=== PATIENT | female | born 1955 | race African-American/Black ===

== ENCOUNTER 2018-11-27 08:23 | Day surgery (SDC) | payer MEDICAID | END 2018-11-27 17:15 | disposition home or self-care (01) | LOC: COL.CAR 08:23 | DX: I25.10 Atherosclerotic heart disease of native coronary artery without angina pectoris (principal); I27.20 Pulmonary hypertension, unspecified; I73.9 Peripheral vascular disease, unspecified; J44.9 Chronic obstructive pulmonary disease, unspecified; I12.9 Hypertensive chronic kidney disease with stage 1 through stage 4 chronic kidney disease, or unspecified chronic kidney disease; E11.22 Type 2 diabetes mellitus with diabetic chronic kidney disease; N18.9 Chronic kidney disease, unspecified; M19.90 Unspecified osteoarthritis, unspecified site; E78.00 Pure hypercholesterolemia, unspecified; F17.290 Nicotine dependence, other tobacco product, uncomplicated; G43.909 Migraine, unspecified, not intractable, without status migrainosus; E78.2 Mixed hyperlipidemia; Z88.6 Allergy status to analgesic agent; Z91.018 Allergy to other foods; Z79.82 Long term (current) use of aspirin; Z80.9 Family history of malignant neoplasm, unspecified; Z83.3 Family history of diabetes mellitus; Z82.3 Family history of stroke ==

== ENCOUNTER 2020-06-05 07:37 | Day surgery (SDC) | payer MEDICAID ==
[~2020-06-05] VITALS: Ht 160 cm; Wt 78.2 kg
[2020-06-05] VITALS (688 sets, daily range): BP systolic 94–139; BP diastolic 60–82; PULSE 75–97; TEMP 97.2–98.2; O2SAT 79–100
[~2020-06-05 07:37] MED LIST: ALKA-SELTZER HE1 TEF PO; ASPIRIN 81M81 MG/TA2 PO; GLUCOPHAGE1000 MG PO; LIPITOR 40MG TA40 MG PO; NEURONTIN100 MG/CAP PO; PRINIVIL20 MG PO; SYNTHROID 0.0.025 MG PO; ZESTRIL 10MG10 MG PO; ZYRTEC 10MG10 MG PO
[2020-06-05] MEDS ORDERED: SYNTHROID0.05 MG/TA PO (08:02)
[2020-06-05] MEDS ORDERED: FERROUS SU325 MG/TAB PO (08:03)
[2020-06-05] MEDS ORDERED: VENTOLIN0.09 MG IH (08:04)
[2020-06-05] MEDS ORDERED: JANUMET 1000 MG1 TA1 PO (08:05)
[2020-06-05] MEDS ORDERED: SINGULAIR 110 MG/TAB PO (08:05)
[2020-06-05] MEDS ORDERED: ANORO IH (08:07)
[2020-06-05] MEDS ORDERED: KLONOPIN 0.5MG0.5 MG PO (08:07)
[2020-06-05] MEDS ORDERED: VITAMIN C500 MG PO (08:08)
[2020-06-05] MEDS ORDERED: PROTONIX20 MG PO (08:08)
[2020-06-05 08:13] LABS: HEMOGLOBIN 11.4 g/dl (12.5-16.0); MEAN CELL VOLUME 84 fl (80.0-100.0); MEAN CORPUSCULAR HEMOGLOBIN 27 pg (27.0-31.0); MEAN CORPUSCULAR HGB CONC 32 g/dl (33.0-37.0); MEAN PLATELET VOLUME 8.4 fl (7.4-10.4); PLATELET COUNT 362 K/mm3 (130-400); RED BLOOD COUNT 4.24 M/mm3 (4.10-5.30); REDCELL DISTRIBUTION WIDTH-CV 22.5 % (11.5-14.5)
[2020-06-05 08:17] LABS: HEMATOCRIT 35.6 % (37.0-47.0)
[2020-06-05 08:20] LABS: INR 1.1 (0.8-3.0); PROTHROMBIN TIME 12.5 SECONDS (9.7-12.8)
[2020-06-05 09:15] LABS: CALCIUM 10.2 mg/dL (8.4-10.2); CREATININE, serum 1.14 (0.52-1.25); POTASSIUM 4.8 mmol/L (3.4-5.0)
--- NOTE | 2020-06-05 10:13 | NUR ---
SEE MERGE DOCUMENTATION FOR MEDICATION ADMINISTRATION AND INTRA/POST PROCEDURE SEDATION ASSESSMENTS.
--- NOTE | 2020-06-05 11:45 | NUR ---
Diego from Hospital Receiving Clerk retrieves pt's belongings to be taken to pt's inpt ICU room.
--- NOTE | 2020-06-05 19:30 | NUR ---
Patient resting in bed; alert and oriented X 4. Groin site clean, dry and intact. Mild tenderness with palpation. Assisted up to bathroom; stand by assist only. VS stable.
[2020-06-06] VITALS (459 sets, daily range): BP systolic 92–148; BP diastolic 48–67; PULSE 81–88; TEMP 97.8–98.6; O2SAT 55–100
[2020-06-06 05:24] LABS: BASO % 0.4 % (0.0-2.0); EOS # 0.3 (0.0-0.7); EOS % 2.4 % (0-4.0); GRAN # 7.1 (1.4-6.5); GRAN % 64.8 % (42.2-75.2); LYMPH # 2.6 (1.2-3.4); LYMPH % 23.9 % (20.0-51.0); MEAN CELL VOLUME 84 fl (80.0-100.0); MEAN CORPUSCULAR HGB CONC 31 g/dl (33.0-37.0); MEAN PLATELET VOLUME 8.5 fl (7.4-10.4); MONO # 0.9 (0.1-0.6); PLATELET COUNT 290 K/mm3 (130-400); RED BLOOD COUNT 3.73 M/mm3 (4.10-5.30); REDCELL DISTRIBUTION WIDTH-CV 22.1 % (11.5-14.5)
[2020-06-06 05:25] LABS: HEMATOCRIT 31.4 % (37.0-47.0); HEMOGLOBIN 9.7 g/dl (12.5-16.0); MEAN CORPUSCULAR HEMOGLOBIN 26 pg (27.0-31.0)
[2020-06-06 05:32] LABS: CALCIUM 8.3 mg/dL (8.4-10.2); CREATININE, serum 1.47 (0.52-1.25); POTASSIUM 4.1 mmol/L (3.4-5.0)
--- NOTE | 2020-06-06 07:15 | NUR ---
Bedside report given to BIANKA Blood.
--- NOTE | 2020-06-06 08:00 | NUR ---
NITRO DRIP STOPPED. PO IMDUR GIVEN.
[2020-06-06] MEDS ORDERED: IMDUR 60MG60 MG/TAB PO (09:45)
--- NOTE | 2020-06-06 10:59 | NUR ---
IV AND TELE DC'D. DISCHARGE INSTRUCTIONS AND MEDS DISCUSSED WITH PT. ALL QUESTIONS ANSWERED. PT HAS ALL PAPERWORK. PT TO ASSOCIATE MEDIA DIRECTOR PRESCRIPTION AT [facility]. PT DRESSED AND WHEELED OUT TO ER FOR DISCHARGE.
--- NOTE | 2020-06-06 14:14 | NUR ---
Plan: Plans to return home to independent living in [place]. Assessment: SW met with patient about DC plan. Patient reports that she has [facility] and needs a ride home. [facility] is not open on the weekend and needs a three day prior to schedule. Patient reports that her PCP is Margaret Solorio at [facility]. Patient reports having another appointment scheduled on Aug 31, 2020. Patient reports that her emr contact is Ashanti Pollack . Action: SW setup transportation for client. Patient denies having no needs.
== END 2020-06-06 11:30 ==
LOC: COL.CAR → ICU 11:30 → COL.CAR 06-06 11:30
PROVIDERS: Internal Medicine Cardiovascular Disease
DX: I25.110 Atherosclerotic heart disease of native coronary artery with unstable angina pectoris (principal); I73.9 Peripheral vascular disease, unspecified; R94.39 Abnormal result of other cardiovascular function study; I10 Essential (primary) hypertension; I27.20 Pulmonary hypertension, unspecified; E78.5 Hyperlipidemia, unspecified; E11.9 Type 2 diabetes mellitus without complications; J44.9 Chronic obstructive pulmonary disease, unspecified; Z20.828 Contact with and (suspected) exposure to other viral communicable diseases; Z88.6 Allergy status to analgesic agent
CPT/HCPCS: OP; J1644; J2250; J3010; Q9967

== ENCOUNTER → 2022-05-27 | Outpatient (CLI) | payer MEDICAID ==
[~2022-05-27] MED LIST changes: +ANORO IH; +FERROUS SU325 MG/TAB PO; +IMDUR 60MG60 MG/TAB PO; +JANUMET 1000 MG1 TA1 PO; +KLONOPIN 0.5MG0.5 MG PO; +PROTONIX20 MG PO; +SINGULAIR 110 MG/TAB PO; +SYNTHROID0.05 MG/TA PO; +VENTOLIN0.09 MG IH; +VITAMIN C500 MG PO
== END ==
LOC: COL.ER 11:46 → COL.VAS 11:49 → EDSTATUS 12:10
DX: M79.661 Pain in right lower leg (principal)